=== PATIENT | male | born 1935 | race Hispanic/Latino ===

== ENCOUNTER 2017-06-11 21:00 | Emergency (ER) | payer MEDICARE ==
--- NOTE | 2017-06-11 21:53 | ED PDOC ---
Arrival/HPI <Carlos Little - Last Filed: 06/11/17 22:19> - General Historian: Patient <MartaLudinLaura T - Last Filed: 06/11/17 23:38> - General Chief Complaint: Male Genitourinary Time Seen by Provider: 06/11/17 21:41 - History of Present Illness Narrative History of Present Illness (Text): 06/11/17 21:58 81-year-old male presents today with difficulty with urination. Patient states he had a catheter removed this morning. Patient states he's had the Onofre catheter in place for the past month. Patient states that since removal of the catheter and he is developed a little pressure in the lower abdomen as well as difficulty with urination. Patient states he is dribbling urine but is not getting all of it out. Patient states he feels as if he is in urinary retention again and is requesting to have another Onofre catheter placed. The patient noticed stinging irritation when the urine dribbles. He denies testicular pain. Denies fevers or chills. No abdominal pain. No dizziness or weakness. No other complaints (Laura Lozano) Past Medical History - Provider Review Nursing Documentation Reviewed: Yes - Travel History Have you recently traveled outside [place] w/in the past 3 mons?: No - Infectious Disease Hx of Infectious Diseases: None <Laura Lozano - Last Filed: 06/11/17 23:38> Family/Social History - Physician Review Nursing Documentation Reviewed: Yes Family/Social History: Unknown Family HX Smoking Status: Never Smoked Hx Alcohol Use: No Hx Substance Use: No <Laura Lozano - Last Filed: 06/11/17 23:38> Allergies/Home Meds <Carlos Little - Last Filed: 06/11/17 22:19> <Laura Lozano - Last Filed: 06/11/17 23:38> Allergies/Adverse Reactions: Allergies ALEJANDRO Inhibitors Allergy (Verified 06/11/17 21:31) SHORTNESS OF BREATH Review of Systems - Review of Systems Constitutional: absent: Fatigue, Fevers Respiratory: absent: SOB, Cough Cardiovascular: absent: Chest Pain, Palpitations Gastrointestinal: Abdominal Pain. absent: Constipation, Diarrhea, Nausea, Vomiting Genitourinary Male: Dysuria, Urinary Output Changes Musculoskeletal: absent: Arthralgias, Back Pain, Neck Pain Skin: absent: Rash, Pruritis Neurological: absent: Headache, Dizziness Psychiatric: absent: Anxiety, Depression, Suicidal Ideation <Laura Lozano - Last Filed: 06/11/17 23:38> Physical Exam Vital Signs Reviewed: Yes Temperature: Afebrile Blood Pressure: Normal Pulse: Regular Respiratory Rate: Normal Appearance: Positive for: Well-Appearing, Non-Toxic, Comfortable Pain Distress: None Mental Status: Positive for: Alert and Oriented X 3 - Systems Exam Head: Present: Atraumatic Mouth: Present: Moist Mucous Membranes Neck: Present: Normal Range of Motion Respiratory/Chest: Present: Clear to Auscultation, Good Air Exchange. No: Respiratory Distress, Accessory Muscle Use Cardiovascular: Present: Regular Rate and Rhythm, Normal S1, S2. No: Murmurs Abdomen: No: Tenderness, Distention, Peritoneal Signs, Rebound, Guarding Genitourinary Male: Present: Normal External Genitalia Back: No: CVA Tenderness, Midline Tenderness Upper Extremity: Present: Normal ROM Lower Extremity: Present: Normal ROM Neurological: Present: GCS=15, Speech Normal Skin: Present: Warm, Dry, Normal Color. No: Rashes Psychiatric: Present: Alert, Oriented x 3 <Laura Lozano - Last Filed: 06/11/17 23:38> Vital Signs Temp Pulse Resp BP Pulse Ox 06/11/17 22:23 98.1 F 68 18 155/72 H 95 Medical Decision Making <Carlos Little - Last Filed: 06/11/17 22:19> Reassessment Condition: Re-examined, Improved <Laura Lozano - Last Filed: 06/11/17 23:38> ED Course and Treatment: 06/11/17 22:04 81yr old male with urinary retention. had onofre catheter removed today at 9: 15am, now only passing small amounts of Urine. pt is non toxic well appearing; no distress. stable vitals. bladder scan; 658ml onofre catheter inserted. UA; large blood, + nitrates, + leukocytes urine culture pending . 06/11/17 23:34 pt feeling better; vitals stable. pt started on keflex Po. pt will be discharged with onofre catheter in place. rx for keflex; pt advised to f/u with urologist tomorrow. Patient verbalizes understanding of discharge instructions and need for immediate followup. all aspects of this case were discussed the attending of record. Impression: Urinary retention, UTI keflex; 1 capsule twice daily x 7 days follow up with the urologist tomorrow follow up with the primary care physician within the next 2 days return immediately if symptoms worsen,persist or if new symptoms develop. (Laura Lozano) - Lab Interpretations Lab Results: Lab Results 06/11/17 23:03: Urine Color Yellow, Urine Appearance Cloudy, Urine pH 5.0, Ur Specific [place] 1.020, Urine Protein >=300 H, Urine Glucose (UA) 100 H, Urine Ketones Negative, Urine Blood Large H, Urine Nitrate Positive H, Urine Bilirubin Negative, Urine Urobilinogen 2.0 H, Ur Leukocyte Esterase Large H, Urine RBC Pending, Urine WBC Pending - PA / [employer] VICE PRESIDENT / Resident Statement / has reviewed & agrees with the documentation as recorded. / has examined the patient and agrees with the treatment plan. <Carlos Little - Last Filed: 06/11/17 22:19> Disposition/Present on Arrival <Carlos Little - Last Filed: 06/11/17 22:19> - Present on Arrival Any Indicators Present on Arrival: No History of DVT/PE: No History of Uncontrolled Diabetes: No Urinary Catheter: No History of Decub. Ulcer: No History Surgical Site Infection Following: None - Disposition Have Diagnosis and Disposition been Completed?: Yes Disposition Time: 23:37 Patient Plan: Discharge <Laura Lozano - Last Filed: 06/11/17 23:38> - Disposition Diagnosis: Urinary retention, Urinary tract infection Disposition: HOME/ ROUTINE Patient Problems: Current Active Problems Problem Status Onset Urinary retention Acute Condition: GOOD Discharge Instructions (ExitCare): Onofre Catheter, Male, Urinary Retention (DC) , Urinary Tract Infection, Adult (DC) Additional Instructions: keflex; 1 capsule twice daily x 7 days follow up with the urologist tomorrow follow up with the primary care physician within the next 2 days return immediately if symptoms worsen,persist or if new symptoms develop. Prescriptions: Cephalexin [Keflex] 500 mg PO BID #14 capsule Referrals: Jaydon Marquez MD [Primary Care Provider] - Follow up with primary Farzana Cagle MD [Staff Provider] - Follow up with primary Forms: [employer] (Burmese)
[2017-06-11 22:23] VITALS: TEMP 98.1
[2017-06-11 23:08] LABS: URINE BILIRUBIN NEGATIVE (NEGATIVE); URINE BLOOD LARGE (NEGATIVE); URINE GLUCOSE (UA) 100 mg/dL (NEGATIVE); URINE LEUKOCYTE ESTERASE LARGE Leu/uL (NEGATIVE); URINE PROTEIN >=300 mg/dL (<30 mg/dL)
[2017-06-11 23:30] LABS: URINE APPEARANCE CLOUDY (CLEAR); URINE COLOR YELLOW (YELLOW)
[2017-06-11 23:54] LABS: URINE BACTERIA MOD (NEG); URINE EPITHELIAL CELLS 0 - 2 /hpf (0-5); URINE WBC TNTC /hpf (0-6)
[2017-06-12 00:01] VITALS: BP 146/72; PULSE 77; RESP 16; O2SAT 99
== END 2017-06-12 00:01 | disposition home or self-care (01) ==
LOC: ED 21:00
DX: N39.0 Urinary tract infection, site not specified (principal)

== ENCOUNTER 2017-08-05 20:24 | Emergency (ER) | payer MEDICARE ==
[2017-08-05 20:44] VITALS: BMI 28.3
[2017-08-05 20:45] VITALS: TEMP 98.1
--- NOTE | 2017-08-05 20:59 | ED PDOC ---
Arrival/HPI - General Chief Complaint: Male Genitourinary Time Seen by Provider: 08/05/17 20:41 Historian: Patient - History of Present Illness Narrative History of Present Illness (Text): 08/05/17 20:57 A 81 year old male, whose past medical history includes hypertension and prostate CA, presents to the emergency department complaining of urinary retention. Patient reports he has undergone radiation therapy for prostate cancer.Pt. with previous episodeds of urinary retention requiring catheter placement. Patient mentions also having catheter removed earlier today for a trial and now presents inability to urinate afterwards. Patient denies any fever , chills, nausea, vomiting, back pain, or any other complaints at this time. No PMD Past Medical History - Provider Review Nursing Documentation Reviewed: Yes - Infectious Disease Hx of Infectious Diseases: None - Cardiac Hx Hypertension: Yes - Hematological/Oncological Hx Cancer: Yes (prostate) - Genitourinary/Gynecological Other/Comment: bladder spasm - Psychiatric Hx Substance Use: No - Surgical History Other/Comment: colon resection - Anesthesia Hx Anesthesia: Yes Hx Anesthesia Reactions: No Hx Malignant Hyperthermia: No Family/Social History - Physician Review Nursing Documentation Reviewed: Yes Family/Social History: No Known Family HX Smoking Status: Never Smoked Hx Alcohol Use: No Hx Substance Use: No Allergies/Home Meds Allergies/Adverse Reactions: Allergies ALEJANDRO Inhibitors Allergy (Verified 08/05/17 20:52) SHORTNESS OF BREATH Home Medications: Home Meds Medication Instructions Recorded Confirmed Bisoprolol [Zebeta] 2 tab PO DAILY 08/05/17 08/05/17 Tamsulosin [Flomax] 2 tab PO DAILY 08/05/17 08/05/17 Review of Systems - Physician Review All systems were reviewed & negative as marked: Yes - Review of Systems Constitutional: absent: Fevers, Night Sweats Gastrointestinal: absent: Nausea, Vomiting Genitourinary Male: Other (urinary retention) Musculoskeletal: absent: Back Pain Physical Exam Vital Signs Reviewed: Yes Vital Signs Temp Pulse Resp BP Pulse Ox 08/05/17 20:44 98.1 F 62 18 136/75 95 Temperature: Afebrile Blood Pressure: Normal Pulse: Regular Respiratory Rate: Normal Appearance: Positive for: Well-Appearing, Non-Toxic, Comfortable Pain Distress: None Mental Status: Positive for: Alert and Oriented X 3 - Systems Exam Head: Present: Atraumatic, Normocephalic Pupils: Present: PERRL Extroacular Muscles: Present: EOMI Conjunctiva: Present: Normal Mouth: Present: Moist Mucous Membranes Neck: Present: Normal Range of Motion Respiratory/Chest: Present: Clear to Auscultation, Good Air Exchange. No: Respiratory Distress, Accessory Muscle Use Cardiovascular: Present: Regular Rate and Rhythm, Normal S1, S2. No: Murmurs Abdomen: No: Tenderness, Distention, Peritoneal Signs Genitourinary Male: Present: Other (suprapubic follus) Back: Present: Normal Inspection Upper Extremity: Present: Normal Inspection. No: Cyanosis, Edema Lower Extremity: Present: Normal Inspection. No: Edema Neurological: Present: GCS=15, CN II-XII Intact, Speech Normal Skin: Present: Warm, Dry, Normal Color. No: Rashes Psychiatric: Present: Alert, Oriented x 3, Normal Insight, Normal Concentration Medical Decision Making ED Course and Treatment: 08/05/17 21:01 Impression: 81 year old male with urinary retention since removal of catheter earlier today. Physical exam shows suprapubic follus, otherwise normal examination. Plan: -- Reassess and disposition Prior Visits: Notes and results from previous visits were reviewed. Patient was last seen in the emergency department on 06/11/2017 for difficulty with urination. Patient was discharge home. Progress Notes: 08/05/17 21:22 Pt. had placement of urinary onofre catheter with passage of > 600 cc urine with relief. - Scribe Statement The provider has reviewed the documentation as recorded by the Nataly Romero Provider Scribe Attestation: All medical record entries made by the Nataly were at my direction and personally dictated by me. I have reviewed the chart and agree that the record accurately reflects my personal performance of the history, physical exam, medical decision making, and the department course for this patient. I have also personally directed, reviewed, and agree with the discharge instructions and disposition. Disposition/Present on Arrival - Present on Arrival Any Indicators Present on Arrival: No History of DVT/PE: No History of Uncontrolled Diabetes: No Urinary Catheter: No History of Decub. Ulcer: No History Surgical Site Infection Following: None - Disposition Have Diagnosis and Disposition been Completed?: Yes Diagnosis: Urinary retention Disposition: HOME/ ROUTINE Disposition Time: 21:23 Patient Plan: Discharge Condition: GOOD Discharge Instructions (ExitCare): Urinary Retention (DC), Onofre Catheter, Male Additional Instructions: Maintain onofre catheter/leg bag/follow up with your urologist this week as scheduled. Forms: [employer] (Jordanian)
[2017-08-05 21:43] VITALS: BP 130/70; PULSE 65; RESP 19; O2SAT 99
== END 2017-08-05 21:42 | disposition home or self-care (01) ==
LOC: ED 20:24
DX: R33.9 Retention of urine, unspecified (principal); I10 Essential (primary) hypertension; C61 Malignant neoplasm of prostate